=== PATIENT | male | born 1935 | race Caucasian/White ===

== ENCOUNTER → 2016-12-11 | Day surgery (SDC) | payer MEDICARE, OTHER ==
[~2016-12-11] MED LIST: ACCUPRIL; ACCUPRIL PO; ARICEPT PO; ARICEPT23 MG PO; ARICEPT5 M1 PO; ASPIRIN ENTERI325 M1 PO; ASPIRIN PO; ASPIRIN81 M2 PO; ATENOLOL PO; ATENOLOL25 MG PO; ATIVAN0.5 MG PO; ATORVASTATIN CA10 MG PO; ATROPINE SULFAT15 ML SL; BENZONATATE PO; BISAC-EVAC5 MG PO; COZAAR100 MG PO; DULCOLAX10 MG/SUPP PR; FLOMAX0.4 M1 PO; HYDROCHLOROTHIA25 MG PO; KEFLEX500 MG PO; LEVOFLOXACIN500 MG PO; LIPITOR PO; LIPITOR20 MG PO; LOSARTAN POTAS100 MG PO; MELATIN3 MG PO; NAMENDA XR28 MG PO; NIACIN500 M1 PO; NITROGLYGERIN0.4 MG SL; NITROSPRAY; NITROSTAT0.4 MG SL; NORFLEX100 MG PO; OCEAN45 ML; PLAVIX PO; QUINAPRIL HCL20 MG PO; REMERON30 MG PO; TAMIFLU30 MG PO; TENORMIN25 M1 PO; TENORMIN25 MG PO; TRAZODONE PO; TRILIPIX135 MG PO; TYLENOL325 M1; ZYRTEC10 M1 PO; [UNRECOGNIZED DRUG - OTHER] PR
--- NOTE | ~2016-12-11 | OR ---
Unit #: [id number] #: [id number] Patient: ERENDIRA SHAH [id number] [address] [address] [id number] O MR#: [id number] NAME: ERENDIRA SHAH ROOM: Date of Procedure: 12/11/2016 Admission Date: 12/11/2016 Surgeon: Gene Coates M.D. : 1935 Attending Physician: Gene Coates M.D. Referring Physician: Gene Coates M.D. Primary Care Physician: Benjy Melvin M.D. OPERATIVE REPORT PROCEDURE PERFORMED Esophagogastroduodenoscopy with biopsy and esophagogastroduodenoscopy with balloon dilatation. INDICATIONS FOR PROCEDURE The patient with significant dysphagia, undergoing EGD for evaluation. MEDICATIONS Monitored anesthesia. POSTOPERATIVE FINDINGS 1. 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 Dilation carried out successfully with a balloon to 19 mm. 2. Mild chronic gastritis. Biopsies taken. 3. Normal duodenum and distal duodenum. PLAN 1. PPIs. 2. Mechanical soft diet. 3. Repeat dilation based on symptoms. DESCRIPTION OF PROCEDURE The patient was explained of the procedure, risks, and benefits along with risks and benefits of anesthesia. Bite block was placed. The scope was passed down the mouth into the esophagus, stomach, duodenum, and distal duodenum. Findings as described. Biopsies taken. Gently, the scope was pulled out. Dilation carried out at this time. He tolerated it well. No major complications were seen. Dictated by... Christian Castillo/alessandro TD: 12/12/2016 02:44 JOB #: [id number] Unit #: [id number] #: [id number] Patient: ERENDIRA SHAH OPERATIVE REPORT Page 1 of 1 X Gene Coates MD X PROCEDURE OPERATIVE NOTE
== END | disposition home or self-care (01) ==
LOC: COPS 07:47
DX: K29.50 Unspecified chronic gastritis without bleeding (principal); K22.2 Esophageal obstruction; K44.9 Diaphragmatic hernia without obstruction or gangrene; K25.9 Gastric ulcer, unspecified as acute or chronic, without hemorrhage or perforation; I25.10 Atherosclerotic heart disease of native coronary artery without angina pectoris; K21.9 Gastro-esophageal reflux disease without esophagitis; Z87.01 Personal history of pneumonia (recurrent); Z95.1 Presence of aortocoronary bypass graft; Z95.5 Presence of coronary angioplasty implant and graft; Z88.0 Allergy status to penicillin; Z79.899 Other long term (current) drug therapy
CPT/HCPCS: 88305; 88312

== ENCOUNTER 2017-03-15 18:26 | Emergency (ER) | payer MEDICARE, OTHER ==
--- NOTE | ~2017-03-15 | CR72 ---
[facility] A Service of [facility] RADIOLOGY TEXT RESULTS PATIENT: ERENDIRA SHAH LOCATION: [facility] : [birth year] UNIT #: [id number] AGE: [address]: Orion Abebe MD SEX: M ORDER DR: [id number] [facility] [address] [place], [place] [address] [id number] E MR#: [id number] Acc #: [id number] NAME: ERENDIRA SHAH : 1935 SEX: M STUDY DATE/TIME: 03/15/2017 19:14 UNIT: [facility] ROOM: STUDY DESCRIPTION: CR Chest Single View Portable Attending Physician: Orion Abebe M.D. Ordering Physician: Orion Abebe M.D. Primary Care Physician: Benjy Melvin M.D. MEDICAL IMAGING REPORT This report is preliminary unless electronic signature is present EXAM Portable chest HISTORY Cough for 1 week FINDINGS Cardiac size and pulmonary vascularity are within normal limits. Sternotomy with mediastinal clips and markers. No airspace infiltrates or effusions. IMPRESSION No acute findings. Dictated by... Papa Sands M.D. THIS IS AN ELECTRONICALLY VERIFIED REPORT Papa Sands M.D. at 03/16/2017 10:57 PM DFL/to TD: 03/16/2017 15:23 JOB #: [id number] MEDICAL IMAGING REPORT Page 1 of 1 COPY
--- NOTE | ~2017-03-15 | CT4 ---
[facility] A Service of [facility] RADIOLOGY TEXT RESULTS PATIENT: ERENDIRA SHAH LOCATION: [facility] : 37 UNIT #: [id number] AGE: [address]: Orion Abebe MD SEX: M ORDER DR: [id number] [facility] [address] [place], [place] [address] [id number] E MR#: [id number] Acc #: [id number] NAME: ERENDIRA SHAH : 1935 SEX: M STUDY DATE/TIME: 03/15/2017 19:36 UNIT: [facility] ROOM: STUDY DESCRIPTION: CT Abd and Pelv Wo Cont Attending Physician: Orion Abebe M.D. Ordering Physician: Orion Abebe M.D. Primary Care Physician: Benjy Melvin M.D. MEDICAL IMAGING REPORT This report is preliminary unless electronic signature is present EXAM CT abdomen and pelvis without contrast. HISTORY Abdomen pain today. Constipation. TECHNIQUE This CT exam was performed with one or more of the following radiation dose reduction techniques: automatic exposure control, adjustment of mA and/or kV according to patient size, and iterative reconstruction. FINDINGS CT abdomen and pelvis was performed without contrast. CT ABDOMEN: Several incidental hepatic cysts measuring up to 3.5 cm in the hepatic dome. Small gallstones. No gallbladder distension. No biliary dilatation. The spleen, pancreas, and adrenal glands are normal. Mild generalized bilateral renal parenchymal atrophy and incidental bilateral renal cysts. No bowel dilatation. No ascites or inflammatory stranding. Normal caliber abdominal aorta. No bowel dilatation. No adenopathy. No inflammatory stranding. Multilevel fusion from L3-S1. CT PELVIS: Marked dilatation of the appendix measuring 4.4 cm in maximal diameter, with thin curvilinear calcification about the appendiceal tip, characteristic of an appendiceal mucocele. No periappendiceal stranding or fluid. No pelvic free fluid. No bowel dilatation. Urinary bladder is normal. IMPRESSION 1. Marked appendiceal dilatation with thin curvilinear calcification along the tip of the appendix. The appendix measures 4.4 cm in [facility] A Service of [facility] RADIOLOGY TEXT RESULTS PATIENT: ERENDIRA SHAH [id number] : [birth year] UNIT #: [id number] AGE: [address]: Orion Abebe MD SEX: M ORDER DR: maximal dimension. 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 No adjacent inflammatory stranding or fluid or wall thickening. 2. No acute findings in the remainder of the abdomen or pelvis. 3. Small gallstones. 4. No bowel obstruction or urinary obstruction. Dictated by... Papa Sands M.D. THIS IS AN ELECTRONICALLY VERIFIED REPORT Papa Sands M.D. at 03/16/2017 10:58 PM RONNIE/zulema TD: 03/16/2017 15:48 JOB #: [id number] MEDICAL IMAGING REPORT Page 1 of 1 COPY
--- NOTE | ~2017-03-15 | EKG ---
PATIENT: ERENDIRA SHAH UNIT #: [id number] Ventricular Rate: 80 BPM Atrial Rate: 80 BPM P-R Interval: 144 ms QRS Duration: 88 ms Q-T Interval: 402 ms QTC Calculation(Bezet): 463 ms P Coello: 63 degrees Calculated R Coello: 21 degrees Calculated T Coello: 11 degrees Diagnosis Line: Normal sinus rhythm Baseline wander T wave Diagnosis Line: abnormality, consider inferior ischemia Diagnosis Line: T wave abnormality, consider anterior ischemia Diagnosis Line: Abnormal ECG Diagnosis Line: No previous ECGs available Diagnosis Line: Confirmed by NARESH DUBOIS MD ([id number]) on 03/16/2017 Diagnosis Line: 3:31:36 PM INTERPRETING MD: SILVINO JOYNER
[2017-03-15 19:39] LABS: BASOPHIL# 0.1 X10e3 (0-0.3); BASOPHIL% 0.5 % (0-2.5); EOSINOPHIL# 0.4 X10e3 (0-0.7); EOSINOPHIL% 3.8 % (0.0-7.0); HEMATOCRIT 42.9 % (38.0-50.0); LYMPHOCYTE# 0.9 X10e3 (1.0-3.5); LYMPHOCYTE% 7.9 % (17.0-45.0); MEAN CELL VOLUME 86.8 FL (83-96); MEAN CORPUSCULAR HEMOGLOBIN 28.3 PG (28-34); MEAN CORPUSCULAR HGB CONC 32.6 g/dL (30-36); MONOCYTE# 1.3 X10e3 (0-1.0); MONOCYTE% 11.7 % (3.0-12.0); NEUTROPHIL# 8.7 X10e3 (1.5-7.1); NEUTROPHIL% 76.1 % (40-75); PLATELET COUNT 282 X10e3 (140-420); RED BLOOD COUNT 4.94 X10e (3.90-5.60); RED CELL DISTRIBUTION WIDTH 13.3 % (11.0-15.5); WHITE BLOOD COUNT 11.4 X10e3 (4.0-10.5)
[2017-03-15 19:43] LABS: DIFF IND NO
[2017-03-15 19:58] LABS: ALBUMIN SERUM 3.4 g/dL (3.5-5.0); BILIRUBIN,TOTAL 1.1 mg/dL (0.2-2.0); BUN/CREATININE RATIO 15.38; CALCIUM SERUM 8.4 mg/dL (8.4-10.2); CREATININE SERUM 1.3 mg/dL (0.6-1.4); GLOM FILT RATE Estimated 51.2 mL/min (>60); POTASSIUM 3.6 mmol/L (3.5-5.1)
== END 2017-03-16 01:27 | disposition home or self-care (01) ==
LOC: CED 18:26
PROVIDERS: Emergency Medicine
DX: R10.9 Unspecified abdominal pain (principal); R11.10 Vomiting, unspecified; E78.5 Hyperlipidemia, unspecified; J44.9 Chronic obstructive pulmonary disease, unspecified; N18.9 Chronic kidney disease, unspecified; I12.9 Hypertensive chronic kidney disease with stage 1 through stage 4 chronic kidney disease, or unspecified chronic kidney disease; Z88.0 Allergy status to penicillin; Z79.82 Long term (current) use of aspirin; Z79.899 Other long term (current) drug therapy
CPT/HCPCS: 36415; 71010; 74176; 80053; 83690; 85025; 93005; 96360; 99285